=== PATIENT | female | born 1945 | race Caucasian/White ===

== ENCOUNTER 2021-03-30 09:39 | Outpatient (CLI) | payer MEDICARE | END 2021-03-30 09:40 | disposition home or self-care (01) | LOC: CSHMAMMO 09:39 | PROVIDERS: ATTEND Family Medicine | DX: Z12.31 Encounter for screening mammogram for malignant neoplasm of breast (principal) | CPT/HCPCS: 77063; 77067 ==

== ENCOUNTER 2021-05-31 10:13 | Outpatient (CLI) | payer MEDICARE | END 2021-05-31 10:14 | disposition home or self-care (01) | LOC: CSHMRI 10:13 | PROVIDERS: ATTEND Specialist | DX: M51.16 Intervertebral disc disorders with radiculopathy, lumbar region (principal); Z96.82 Presence of neurostimulator; M47.816 Spondylosis without myelopathy or radiculopathy, lumbar region | CPT/HCPCS: 72148 ==

== ENCOUNTER 2022-04-04 08:29 | Outpatient (CLI) | payer MEDICARE | END 2022-04-04 08:30 | disposition home or self-care (01) | LOC: CSHMAMMO 08:29 | PROVIDERS: ATTEND Family Medicine | DX: Z12.31 Encounter for screening mammogram for malignant neoplasm of breast (principal); Z91.89 Other specified personal risk factors, not elsewhere classified | CPT/HCPCS: 77063; 77067 ==

== ENCOUNTER 2022-06-13 16:05 | Emergency (ER) | payer MEDICARE ==
[~2022-06-13 16:05] MED LIST: Iopamidol 370 76% 100 ML VIAL ONE
[2022-06-13 17:06] LABS: INR-International Normal Ratio 0.9; PTT 28.8 sec (22.0-33.0); Prothrombin Time 9.8 sec (9.5-12.1)
[2022-06-13 17:09] LABS: #Basophils 0.1 10x3/uL (0.0-0.2); #Eosinphils 0.2 10x3/uL (0.0-0.5); #Monocytes 0.5 10x3/uL (0.0-1.1); #Neutrophils 4.2 10x3/uL (1.5-8.4); %Basophils 0.9 % (0.0-2.0); %Eosinophils 3.3 % (0.0-6.0); %Lymphocytes 22.1 % (18.0-47.0); %Monocytes 8.1 % (0.0-10.0); %Neutrophils 65.3 % (40.0-75.0); Hemoglobin 13.3 g/dL (12.0-15.5); Mean Corpuscular HGB CONC 33.9 g/dL (32.0-36.0); Mean Corpuscular Hemoglobin 30.5 pg (27.0-33.0); Mean Corpuscular Volume 89.9 fl (81.6-98.3); Mean Platelet Volume 11.4 fl (7.4-10.4); Platelet Count 133 10x3/uL (150-450); RBC Distribution Width 12.5 % (11.5-14.5); Red Blood Cell (RBC) Count 4.36 10x6/uL (3.90-5.03); White Blood Cell (WBC) Count 6.4 10x3/uL (3.5-10.5)
[2022-06-13 17:33] LABS: Anion Gap 15 mmol/L (10-20); BUN (Urea Nitrogen) 19 mg/dL (9.8-20.1); Calc. Creatinine Clearance 0 mL/min (70-130); Carbon Dioxide 31 mmol/L (23-31); Chloride 103 mmol/L (98-107); Potassium 3.5 mmol/L (3.5-5.1); Sodium 145 mmol/L (136-145)
[2022-06-13 17:34] LABS: ALT (SGPT) 27 U/L (8-55); AST (SGOT) 18 U/L (5-34); Albumin 4.4 g/dL (3.4-4.8); Alkaline Phosphatase 84 U/L (40-110); Bilirubin, Total 0.5 mg/dL (0.2-1.2); Estimated GFR 53; Globulin 2.3 g/dL (2.4-3.5); Glucose 197 mg/dL (83-110); Protein, Total 6.7 g/dL (5.8-8.1)
[2022-06-13] MEDS ORDERED: Aspirin Chewable 81 MG TAB ONE (17:51)
[2022-06-13 19:21] LABS: Bilirubin Neg (Negative); Blood, Urine Negative (Negative); Clarity Clear (Clear); Glucose, Urine (Dipstick) Normal (Negative); Ketone, Urine Negative (Negative); Leukocyte Negative (Negative); Nitrite Negative (Negative); Protein, Urine (Dipstick) Negative (Neg-Trace); Specific Gravity, Urine 1.015 (1.005-1.030); Urobilinogen Normal mg/dL (Less than 2)
[2022-06-14] MEDS ORDERED: HYDROcodone/Acetaminophen 5/325 mg Tablet ONE (00:42)
== END 2022-06-14 01:22 | disposition short-term general hospital (02) ==
LOC: CSHERS 16:05
DX: I65.23 Occlusion and stenosis of bilateral carotid arteries (principal); R42 Dizziness and giddiness; I10 Essential (primary) hypertension; E11.9 Type 2 diabetes mellitus without complications; E78.00 Pure hypercholesterolemia, unspecified; Z79.899 Other long term (current) drug therapy
CPT/HCPCS: 0042T; 70450; 71045; 80053; 81003; 82962; 84484; 85025; 85610; 85730; 93005; 36415; 36416; 80061; 81001; 82043; 82306; 83036; 84439; 84443; Q9967

== ENCOUNTER 2022-07-01 09:47 | Outpatient (CLI) | payer MEDICARE | END 2022-07-01 09:48 | disposition home or self-care (01) | LOC: CSHMAMMO 09:47 | PROVIDERS: ATTEND Family Medicine | DX: Z13.820 Encounter for screening for osteoporosis (principal); M81.0 Age-related osteoporosis without current pathological fracture; M85.851 Other specified disorders of bone density and structure, right thigh; M85.852 Other specified disorders of bone density and structure, left thigh; Z78.0 Asymptomatic menopausal state | CPT/HCPCS: 77080 ==

== ENCOUNTER 2022-11-29 10:43 | Outpatient (CLI) | payer MEDICARE | END 2022-11-29 10:44 | disposition home or self-care (01) | LOC: CSHCP 10:43 | PROVIDERS: ATTEND Internal Medicine Critical Care Medicine | DX: R06.09 Other forms of dyspnea (principal); J44.9 Chronic obstructive pulmonary disease, unspecified | CPT/HCPCS: 94060; 94726; 94729; 94760 ==

== ENCOUNTER 2023-02-01 09:24 | Outpatient (CLI) | payer MEDICARE | END 2023-02-01 09:25 | disposition home or self-care (01) | LOC: CSHRAD 09:24 | PROVIDERS: ATTEND Neurological Surgery | DX: M43.16 Spondylolisthesis, lumbar region (principal); Z98.890 Other specified postprocedural states | CPT/HCPCS: 72100 ==

== ENCOUNTER 2023-02-22 10:24 | Outpatient (CLI) | payer MEDICARE | END 2023-02-22 10:25 | disposition home or self-care (01) | LOC: CSHMRI 10:24 | PROVIDERS: ATTEND Neurological Surgery | DX: M51.36 Other intervertebral disc degeneration, lumbar region (principal); Z98.1 Arthrodesis status; M51.37 Other intervertebral disc degeneration, lumbosacral region; M48.07 Spinal stenosis, lumbosacral region | CPT/HCPCS: 72148 ==

== ENCOUNTER 2023-10-26 18:58 | Emergency (ER) | payer MEDICARE ==
[2023-10-26] MEDS ORDERED: Meclizine HCl 25 MG TAB ONE (19:32)
[2023-10-26 19:54] LABS: #Basophils 0.06 10x3/uL (0.0-0.2); #Eosinphils 0.29 10x3/uL (0.0-0.5); #Monocytes 0.47 10x3/uL (0.0-1.1); #Neutrophils 2.89 10x3/uL (1.5-8.4); %Basophils 1.2 % (0.0-2.0); %Eosinophils 5.7 % (0.0-6.0); %Lymphocytes 26.6 % (18.0-47.0); %Monocytes 9.3 % (0.0-10.0); %Neutrophils 56.8 % (40.0-75.0); Hematocrit 45.3 % (34.9-44.5); Hemoglobin 14.9 g/dL (12.0-15.5); Mean Corpuscular HGB CONC 32.9 g/dL (32.0-36.0); Mean Corpuscular Hemoglobin 29.4 pg (27.0-33.0); Mean Corpuscular Volume 89.5 fL (81.6-98.3); Mean Platelet Volume 11.4 fL (7.4-10.4); Platelet Count 149 10x3/uL (150-450); RBC Distribution Width 14.5 % (11.5-14.5); Red Blood Cell (RBC) Count 5.06 10x6/uL (3.90-5.03); White Blood Cell (WBC) Count 5.1 10x3/uL (3.5-10.5)
[2023-10-26 20:01] LABS: ALT (SGPT) 27 U/L (8-55); AST (SGOT) 23 U/L (5-34); Albumin 3.9 g/dL (3.4-4.8); Alkaline Phosphatase 127 U/L (40-110); Anion Gap 17 mmol/L (10-20); BUN (Urea Nitrogen) 14 mg/dL (9.8-20.1); Bilirubin, Total 0.5 mg/dL (0.2-1.2); Calc. Creatinine Clearance 0 mL/min (70-130); Calcium 9.3 mg/dL (7.8-10.44); Carbon Dioxide 27 mmol/L (23-31); Chloride 107 mmol/L (98-107); Estimated GFR 57; Globulin 2.7 g/dL (2.4-3.5); Glucose 304 mg/dL (83-110); Magnesium 2.2 mg/dL (1.6-2.6); Potassium 4.4 mmol/L (3.5-5.1); Protein, Total 6.6 g/dL (5.8-8.1); Sodium 147 mmol/L (136-145)
[2023-10-26 20:04] LABS: Troponin I Less than 0.010 ng/mL (< 0.028)
== END 2023-10-26 20:30 | disposition home or self-care (01) ==
LOC: CSHERS 18:58
DX: R42 Dizziness and giddiness (principal); I10 Essential (primary) hypertension; E11.9 Type 2 diabetes mellitus without complications; Z79.899 Other long term (current) drug therapy
CPT/HCPCS: 36415; 71045; 80053; 83735; 83880; 84484; 85025; 93005

== ENCOUNTER → 2023-12-13 | Day surgery (SDC) | payer MEDICARE ==
[~2023-12-13] MED LIST changes: -Iopamidol 370 76% 100 ML VIAL ONE; +Lidocaine 1% PF 5 ML VIAL ONE; +Sodium Bicarbonate 2.5 MEQ/5 ML SDV ONE
[2023-12-13 08:24] VITALS: BP 164/74
== END ==
LOC: CSHRAD 07:44 → EDSTATUS 08:30
PROVIDERS: ATTEND Neurological Surgery
DX: M54.16 Radiculopathy, lumbar region (principal); Z88.1 Allergy status to other antibiotic agents; Z88.8 Allergy status to other drugs, medicaments and biological substances; Z87.891 Personal history of nicotine dependence
CPT/HCPCS: 72100

== ENCOUNTER 2024-04-08 09:31 | Outpatient (CLI) | payer MEDICARE | END 2024-04-08 09:32 | disposition home or self-care (01) | LOC: CSHMAMMO 09:31 | PROVIDERS: ATTEND Student in an Organized Health Care Education/Training Program | DX: Z12.31 Encounter for screening mammogram for malignant neoplasm of breast (principal); Z91.89 Other specified personal risk factors, not elsewhere classified | CPT/HCPCS: 77063; 77067 ==